=== PATIENT | male | born 1955 | race Caucasian/White ===

== ENCOUNTER 2019-01-28 16:44 | Emergency (ER) | payer MEDICARE, OTHER ==
[2019-01-28 16:50] VITALS: BP 153/83; PULSE 78; RESP 20; TEMP 97.5
[2019-01-28] MEDS ORDERED: LIDOCAINE 1% INJ 10MG/ML (20 ML MDV) SQ ONE (17:11)
[2019-01-28] MEDS ORDERED: AMOXIC-POT CLAV 875MG STARTER 2 EACH TABLET PO STA (17:11)
[2019-01-28] MEDS ORDERED: DIPH,PERTUS(ACELL)TETVAC-LF 0.5 ML VIAL IM ONE (17:11)
--- NOTE | 2019-01-28 17:34 | ED ---
Animal Bite HPI - General Chief Complaint: Animal Bite Stated Complaint: Thumb Lac Time Seen by Provider: 01/28/19 16:52 Source: patient, RN notes reviewed, old records reviewed Mode of arrival: ambulatory Limitations: no limitations - History of Present Illness Initial Comments: Asians an 63-year-old male presents today with a laceration over his left thumb after dog bite. Patient reports he was bit by his brother's dog. Patient reports is a flap type laceration he felt that he needed to have it sutured. He reports that the dog is up-to-date on vaccines. He reports he needs an updated tetanus vaccine today. - Related Data Previous Rx's Medication Instructions Recorded Amoxic-Pot Clav 875-125Mg 1 tab PO Q12HR #20 tablet 01/28/19 [Augmentin 875-125] Allergies Allergy/AdvReac Type Severity Reaction Status Date / Time prochlorperazine Allergy Hallucinati Verified 01/28/19 16:51 [From Compazine] ons Review of Systems ROS Statement: Those systems with pertinent positive or pertinent negative responses have been documented in the HPI. ROS Other: All systems not noted in ROS Statement are negative. Past Medical History Past Medical History: No Reported History History of Any Multi-Drug Resistant Organisms: None Reported Past Surgical History: No Surgical Hx Reported Past Psychological History: No Psychological Hx Reported Smoking Status: Never smoker Past Alcohol Use History: None Reported Past Drug Use History: None Reported General Exam - General Exam Comments Initial Comments: 63-year-old male. Alert and oriented. No distress. Limitations: no limitations General appearance: alert, in no apparent distress Head exam: Present: atraumatic, normocephalic, normal inspection Eye exam: Present: normal appearance, PERRL, EOMI. Absent: scleral icterus, conjunctival injection, periorbital swelling ENT exam: Present: normal exam, mucous membranes moist Neck exam: Present: normal inspection. Absent: tenderness, meningismus, lymphadenopathy Respiratory exam: Present: normal lung sounds bilaterally. Absent: respiratory distress, wheezes, rales, rhonchi, stridor Cardiovascular Exam: Present: regular rate, normal rhythm, normal heart sounds. Absent: systolic murmur, diastolic murmur, rubs, gallop, clicks GI/Abdominal exam: Present: soft, normal bowel sounds. Absent: distended, ten derness, guarding, rebound, rigid Extremities exam: Present: normal inspection, full ROM, normal capillary refill, other (Patient has a 3 cm flap laceration over the left thumb. This is over the DIP. Full range of motion of the thumb. Normal sensation distally.). Absent: tenderness, pedal edema, joint swelling, calf tenderness Back exam: Present: normal inspection Neurological exam: Present: alert, oriented X3, CN II-XII intact Psychiatric exam: Present: normal affect, normal mood Course Vital Signs 01/28/19 16:48 Temperature 97.5 F L Pulse Rate 78 Respiratory 20 Rate Blood Pressure 153/83 O2 Sat by Pulse 99 Oximetry Procedures - Laceration Laceration #1 Site: upper extremity (Left thumb) Size (cm): 3 Description: flap Depth: simple, single layer Anesthesia Technique: local infiltration Amount (mls): 2 Pre-repair: wound explored, irrigated extensively Type of Sutures: nylon Size of Sutures: 5-0 Number of Sutures: 4 Technique: simple, interrupted Patient Tolerated Procedure: well, no complications Medical Decision Making - Medical Decision Making 63-year-old male presents today with a dog bite over the left thumb. He is a flap laceration that is open, evidence of flash tissue exposed. The wound was thoroughly irrigated with 2 L of saline and iodine solution. The wound was loosely approximated with 4 sutures. Discussed keeping the thumb straight to avoid bending until all the skin to heal. I discussed the Patient needs to take antibiotics was given updated tetanus and Augmentin. - Radiology Data Radiology results: report reviewed An x-ray shows soft tissue deformity. No fracture. Disposition Clinical Impression: Thumb laceration, Animal bite Disposition: HOME SELF-CARE Condition: Good Instructions (If sedation given, give patient instructions): Animal Bite (ED) Additional Instructions: Please use medication as discussed. Please follow up with family doctor if symptoms have not improved over the next two days. Please return to the emergency room if your symptoms increase or worsen or for any other concerns. Please return to the emergency room in 8-10 days to have sutures removed. Please leave wound covered for the first 24-48 hours and then leave open to air after that time. Please use clean soap and water to clean the suture area to prevent scabbing over the top of your sutures. Please watch for any signs of infection which may include but not limited to increased pain, swelling, redness, fever or chills. Please return to the emergency room if any signs of infection do occur. Please return to the emergency room for any other concerns or complications. Prescriptions: Amoxic-Pot Clav 875-125Mg [Augmentin 875-125] 1 tab PO Q12HR #20 tablet Is patient prescribed a controlled substance at d/c from ED?: No Referrals: Finesse Giles MD [Primary Care Provider] - 1-2 days Time of Disposition: 18:37
--- NOTE | 2019-01-28 18:05 | XR ---
PROCEDURE: XR hand complete LT - 3V DATE AND TIME: 01/28/2019 5:22 PM CLINICAL INDICATION: PHH; pain TECHNIQUE: Department protocol COMPARISON: None FINDINGS: There is soft tissue laceration change to the thumb soft tissues, just proximal to the IP level. There is no fracture or malalignment. Multilevel relatively mild degenerative joint changes appreciated. IMPRESSION: Soft tissue changes.
== END 2019-01-28 18:43 | disposition home or self-care (01) ==
LOC: EC 16:44
DX: Z20.3 Contact with and (suspected) exposure to rabies (principal); S61.012A Laceration without foreign body of left thumb without damage to nail, initial encounter; Z88.8 Allergy status to other drugs, medicaments and biological substances; Z23 Encounter for immunization; W54.0XXA Bitten by dog, initial encounter; Y92.009 Unspecified place in unspecified non-institutional (private) residence as the place of occurrence of the external cause
CPT/HCPCS: 73130; 90715; 99284; 90471; 12002; J2001

== ENCOUNTER → 2019-07-27 | Outpatient (CLI) | payer MEDICARE, OTHER ==
[2019-07-27 13:16] LABS: HCT 42.4 % (39.0-53.0); HGB 13.6 gm/dL (13.0-17.5); MCH 29.2 pg (25.0-35.0); MCHC 32.2 g/dL (31.0-37.0); MCV 90.7 fL (80.0-100.0); Platelet Count 298 k/uL (150-450); RBC 4.67 m/uL (4.30-5.90); RDW 12.4 % (11.5-15.5); WBC 4.8 k/uL (3.8-10.6)
[2019-07-27 23:49] LABS: African American GFR (CKD) 93.7 (60.0-200.0); Albumin 4.2 g/dL (3.80-4.90); Albumin/Globulin Ratio 1.68 (1.60-3.17); Anion Gap 11.2 mmol/L (4.00-12.00); Calcium 9.6 mg/dL (8.7-10.3); Carbon Dioxide 26.8 mmol/L (21.6-31.8); Globulin 2.5 g/dL (1.6-3.3); Non-African American GFR(CKD) 80.9 (60.0-200.0); Potassium 4.3 mmol/L (3.5-5.5); Total Bilirubin 0.5 mg/dL (0.3-1.2); Total Protein 6.7 g/dL (6.2-8.2)
[2019-07-28 00:18] LABS: Hepatitis A Antibody IgM Non-Reactive (Non-Reactive); Hepatitis B Core IgM Non-Reactive (Non-Reactive); Hepatitis B Surface Antigen Non-Reactive (Non-Reactive); Hepatitis C IgG Antibody Non-Reactive (Non-Reactive)
[2019-07-28 01:18] LABS: HIV 2 AB Non-Reactive (Non-Reactive); HIV AB P24 Non-Reactive (Non-Reactive); HIV P24 AG Non-Reactive (Non-Reactive)
== END | disposition home or self-care (01) ==
LOC: LABWHC1 11:47
PROVIDERS: ATTEND Internal Medicine
DX: Z20.2 Contact with and (suspected) exposure to infections with a predominantly sexual mode of transmission (principal); G89.29 Other chronic pain
CPT/HCPCS: 36415; 80053; 80074; 84443; 85027; 86694; 86695; 86696; 86780; 87390

== ENCOUNTER 2020-07-28 19:09 | Emergency (ER) | payer MEDICARE, OTHER ==
[2020-07-28 19:19] VITALS: BP 153/83; PULSE 78; RESP 20; TEMP 98
--- NOTE | 2020-07-28 19:57 | ED ---
Upper Extremity HPI - General Chief Complaint: Extremity Injury, Upper Stated Complaint: sent by urgent care Time Seen by Provider: 07/28/20 19:47 Source: patient Mode of arrival: ambulatory Limitations: no limitations - History of Present Illness Initial Comments: Doug is a 64-year-old male who presents the ER today for evaluation of a hematoma on his left elbow. Patient states he doesn't recall hitting his elbow on anything but today noticed what appears to be older hematoma that is healing. Patient was moving heavy furniture yesterday doesn't recall any incident in which he felt like he pulled a muscle or hit his arm against anything. He has no pain at the site. He states that today his significant other noted the bruise and he did feel a little bit of tenderness if he palpated a deeply but nothing else. Because he didn't know what caused it and he has heard that hematomas can get infected he came to the ER for evaluation. - Related Data Previous Rx's Medication Instructions Recorded Amoxic-Pot Clav 875-125Mg 1 tab PO Q12HR #20 tablet 01/28/19 [Augmentin 875-125] Allergies Allergy/AdvReac Type Severity Reaction Status Date / Time prochlorperazine Allergy Hallucinati Verified 07/28/20 19:18 [From Compazine] ons Review of Systems ROS Statement: Those systems with pertinent positive or pertinent negative responses have been documented in the HPI. ROS Other: All systems not noted in ROS Statement are negative. Past Medical History Past Medical History: No Reported History History of Any Multi-Drug Resistant Organisms: None Reported Past Surgical History: Adenoidectomy, Appendectomy, Tonsillectomy Past Psychological History: Anxiety Smoking Status: Never smoker Past Alcohol Use History: None Reported Past Drug Use History: None Reported General Exam - General Exam Comments Initial Comments: Physical Exam GENERAL: Patient is well-developed and well-nourished. Patient is nontoxic and well-hydrated and is in no distress. HENT: Normocephalic, Atraumatic. EYES: PERRL, EOMI PULMONARY: Unlabored respirations. CARDIOVASCULAR: RRR Warm and well perfused extremities ABDOMEN: Non-distended SKIN: Hematoma to left elbow, yellowing of edges indicitive of aging hematoma No erythema Minimal tenderness to firm palpation : Deferred NEUROLOGIC: Alert and oriented Normal speech MUSCULOSKELETAL: Moving all extremities with no apparent injury PSYCHIATRIC: No SI/HI Limitations: no limitations Course Vital Signs 07/28/20 19:14 Temperature 98.0 F Pulse Rate 78 Respiratory 20 Rate Blood Pressure 153/83 O2 Sat by Pulse 98 Oximetry Medical Decision Making - Medical Decision Making Patient with aging non-infected hematoma, declined xray, will be discharged home advised to return if there are any signs of infection Disposition Clinical Impression: Traumatic hematoma of left elbow Disposition: HOME SELF-CARE Condition: Stable Instructions (If sedation given, give patient instructions): Hematoma (ED) Is patient prescribed a controlled substance at d/c from ED?: No Referrals: Finesse Giles MD [Primary Care Provider] - 1-2 days
== END 2020-07-28 20:02 | disposition home or self-care (01) ==
LOC: EC 19:09
DX: S50.02XA Contusion of left elbow, initial encounter (principal); X58.XXXA Exposure to other specified factors, initial encounter
CPT/HCPCS: 99282

== ENCOUNTER → 2021-05-14 | Outpatient (CLI) | payer OTHER ==
--- NOTE | 2021-05-14 10:32 | XR ---
EXAMINATION TYPE: XR lumbosacral spine min 4V DATE OF EXAM: 05/14/2021 COMPARISON: None available INDICATION: 65-year-old male, chronic low back pain radiating down legs worse in the left leg TECHNIQUE: Standard 5 views of the lumbar spine. FINDINGS: Preserved lumbar lordosis. Minimal retrolisthesis of L2 over L3 and L3 over L4. No definite vertebral body collapse or acute displaced fracture. Reduced heights of L3-4, L4-5 and L5-S1 discs which may i ndicate disc degeneration. L3-4 and L4-5 opposing endplate osteophytosis. Suspected bilateral L4-5 facet osteoarthropathy. Significant fecal loading of the colon suggestive of constipation. Unremarkable visualized portion of the sacroiliac joints. 3 mm left abdominal soft tis brunilda calcification versus left renal calculus. IMPRESSION: Degenerative changes of the lumbar spine as described above. Further MRI assessment can be considered if clinically required. Other incidental findings as described above.
== END | disposition home or self-care (01) ==
LOC: RADXRMAIN 09:38
PROVIDERS: ATTEND Family Medicine
DX: M47.26 Other spondylosis with radiculopathy, lumbar region (principal)
CPT/HCPCS: 72110

== ENCOUNTER 2021-07-14 17:40 | Emergency (ER) | payer OTHER ==
[2021-07-14 17:45] VITALS: BP 148/98; PULSE 105; RESP 20; TEMP 97.9
[2021-07-14 18:17] LABS: Potassium 4.2 mmol/L (3.5-5.1)
[2021-07-14 18:18] LABS: ALT 16 U/L (4-49); AST 23 U/L (17-59); African American GFR (CKD) >90 (>60 ml/min/1.73 sqM); Albumin 4.2 g/dL (3.5-5.0); Alkaline Phosphatase 68 U/L (38-126); Anion Gap 6 mmol/L; Blood Urea Nitrogen 11 mg/dL (9-20); Calcium 9.6 mg/dL (8.4-10.2); Carbon Dioxide 28 mmol/L (22-30); Chloride 99 mmol/L (98-107); Glucose 116 mg/dL (74-99); Non-African American GFR(CKD) 88 (>60 ml/min/1.73 sqM); Sodium 133 mmol/L (137-145); Total Bilirubin 0.4 mg/dL (0.2-1.3); Total Protein 7.3 g/dL (6.3-8.2)
[2021-07-14 18:19] LABS: Basophils # (A) 0.1 k/uL (0-0.2); Basophils % (A) 1 %; Eosinophils % (A) 1 %; HCT 38.8 % (39.0-53.0); Lymphocytes # (A) 1.4 k/uL (1.0-4.8); Lymphocytes % (A) 20 %; MCH 29.4 pg (25.0-35.0); MCHC 33.4 g/dL (31.0-37.0); MCV 88.1 fL (80.0-100.0); Mean Platelet Volume 6.8; Monocytes # (A) 0.5 k/uL (0-1.0); Monocytes % (A) 7 %; Neutrophils # (A) 4.8 k/uL (1.3-7.7); Neutrophils % (A) 68 %; Platelet Count 322 k/uL (150-450); RBC 4.41 m/uL (4.30-5.90); RDW 12.6 % (11.5-15.5); WBC 7.1 k/uL (3.8-10.6)
[2021-07-14 18:20] LABS: Partial Thromboplastin Time 24.8 sec (22.0-30.0); Prothrombin Time 11.1 sec (9.0-12.0)
[2021-07-14 21:32] LABS: Lipase 77 U/L (23-300)
== END 2021-07-14 19:57 | disposition left against medical advice (07) ==
LOC: EC 17:40
DX: Z53.21 Procedure and treatment not carried out due to patient leaving prior to being seen by health care provider (principal); R07.9 Chest pain, unspecified
CPT/HCPCS: 36415; 80053; 83690; 84484; 85025; 85610; 85730; 93005; 99499

== ENCOUNTER → 2023-03-12 | Outpatient (CLI) | payer MEDICARE, OTHER ==
--- NOTE | 2023-03-12 14:37 | CT ---
EXAMINATION TYPE: CT cervical spine wo con DATE OF EXAM: 03/12/2023 COMPARISON: NONE HISTORY: neck pain post cervical fusion CT DLP: 449 mGycm. Automated Exposure Control for Dose Reduction was Utilized. TECHNIQUE: CT scan of the cervical spine is obtained without contrast, axial images are obtained, sa gittal and coronal reformatted images are also reviewed. FINDINGS: Cervical spine is visualized in its entirety from C1 through upper thoracic levels, anterio r fusion device at C6-C7 levels is present with metallic disc component. There is slight grade 1 ante rolisthesis of C6 on C7 on sagittal image 32. Moderate disc space narrowing and spurring at C5-C6 lev el is present. Posterior spur disc complex effaces the anterior thecal sac at this level. Review of axial images shows additional central disc herniation C2-C3 level effacing the anterior the todd sac on image 41. There is bilateral neural foraminal narrowing due to marginal spurring at C5-C6 level. Thyroid gland is felt within normal limits. Visualized lung apices are clear without pneumotho rax identified. IMPRESSION: Surgical change C6-C7 level with slight grade 1 anterolisthesis C6 on C7. Degenerative c hanges are present at C5-C6 level as detailed above.
== END | disposition home or self-care (01) ==
LOC: RADCTMAIN 13:07
PROVIDERS: ATTEND Specialist
DX: M43.12 Spondylolisthesis, cervical region (principal); M47.22 Other spondylosis with radiculopathy, cervical region; M50.11 Cervical disc disorder with radiculopathy, high cervical region; M43.22 Fusion of spine, cervical region
CPT/HCPCS: 72125

== ENCOUNTER 2024-08-16 06:44 | Emergency (ER) | payer MEDICARE, OTHER ==
[2024-08-16 06:57] VITALS: RESP 18
--- NOTE | 2024-08-16 07:13 | ED ---
Abdominal Pain HPI - General Chief Complaint: Abdominal Pain Stated Complaint: L Flank Pain Time Seen by Provider: 08/16/24 06:55 Source: patient, EMS, RN notes reviewed Mode of arrival: EMS Limitations: no limitations - History of Present Illness Initial Comments: 68-year-old male presents emergency department complaint of left-sided abdominal pain. Patient states that he has been having symptoms on and off for the last several months but states this pain is not alleviating persistent pain this morning. Patient states that makes pain feel better or worse. No change in bowel habits no dysuria no hematuria denies any nausea vomiting he did receive fentanyl and Zofran by EMS. Patient denies fevers or chills no prior abdominal surgeries. Patient offers no other associated symptoms - Related Data Previous Rx's Medication Instructions Recorded Amoxic-Pot Clav 875-125Mg 1 tab PO Q12HR #20 tablet 01/28/19 [Augmentin 875-125] Ketorolac [Toradol] 10 mg PO Q8HR #15 tab 08/16/24 Ondansetron Odt [Zofran Odt] 4 mg PO Q8HR PRN #10 tab 08/16/24 Tamsulosin [Flomax] 0.4 mg PO DAILY #7 cap 08/16/24 Allergies Allergy/AdvReac Type Severity Reaction Status Date / Time prochlorperazine Allergy Hallucinati Verified 07/14/21 17:45 [From Compazine] ons Review of Systems ROS Statement: Those systems with pertinent positive or pertinent negative responses have been documented in the HPI. ROS Other: All systems not noted in ROS Statement are negative. Past Medical History Past Medical History: No Reported History Additional Past Medical History / Comment(s): Closed head injury History of Any Multi-Drug Resistant Organisms: None Reported Past Surgical History: Adenoidectomy, Appendectomy, Tonsillectomy Past Psychological History: Anxiety Smoking Status: Never smoker Past Alcohol Use History: None Reported Past Drug Use History: None Reported General Exam Limitations: no limitations General appearance: alert, in no apparent distress Head exam: Present: atraumatic, normocephalic, normal inspection Eye exam: Present: normal appearance, PERRL, EOMI. Absent: scleral icterus, conjunctival injection, periorbital swelling ENT exam: Present: normal exam, normal oropharynx, mucous membranes moist Neck exam: Present: normal inspection, full ROM. Absent: tenderness, meningismus, lymphadenopathy Respiratory exam: Present: normal lung sounds bilaterally. Absent: respiratory distress, wheezes, rales, rhonchi, stridor Cardiovascular Exam: Present: regular rate, normal rhythm, normal heart sounds. Absent: systolic murmur, diastolic murmur, rubs, gallop, clicks GI/Abdominal exam: Present: soft, tenderness, normal bowel sounds. Absent: distended, guarding, rebound, rigid Back exam: Present: CVA tenderness (L). Absent: CVA tenderness (R) Neurological exam: Present: alert, oriented X3 Course Vital Signs 08/16/24 08/16/24 08/16/24 06:51 08:52 09:40 Temperature 97.8 F 97.9 F Pulse Rate 60 56 L 65 Respiratory 18 18 18 Rate Blood Pressure 158/94 126/78 117/78 O2 Sat by Pulse 98 100 95 Oximetry Medical Decision Making - Medical Decision Making Was pt. sent in by a medical professional or institution (, PA, PRODUCTION MACHINE SHOP SUPERVISOR, urgent care, hospital, or halfway...) When possible be specific @ -No Did you speak to anyone other than the patient for history (EMS, parent, family, police, friend...)? What history was obtained from this source @ -No Did you review nursing and triage notes (agree or disagree)? Why? @ -I reviewed and agree with nursing and triage notes Were old charts reviewed (outside hosp., previous admission, EMS record, old EKG, old radiological studies, urgent care reports/EKG's, halfway records)? Report findings @ -No old charts were reviewed Differential Diagnosis (chest pain, altered mental status, abdominal pain women, abdominal pain men, vaginal bleeding, weakness, fever, dyspnea, syncope, headache, dizziness, GI bleed, back pain, seizure, CVA, palpatations, mental health, musculoskeletal)? @ -Differential Abdominal Pain Men: Appendicitis, cholecystitis, diverticulosis, ischemic bowel, pancreatitis, hepatitis, UTI, gastroenteritis, AAA, incarcerated hernia, bowel obstruction, constipation, inflammatory bowel, hepatitis, peptic ulcer disease, splenic infarction, perforated viscus, testicular torsion, this is not meant to be an all-inclusive list EKG interpreted by me (3pts min.). @ -None X-rays interpreted by me (1pt min.). @ -None done CT interpreted by me (1pt min.). @ -CT abdomen pelvis showing evidence of a left ureteral calculus U/S interpreted by me (1pt. min.). @ -None done What testing was considered but not performed or refused? (CT, X-rays, U/S, labs)? Why? @ -None What meds were considered but not given or refused? Why? @ -None Did you discuss the management of the patient with other professionals (professionals i.e. , PA, PRODUCTION MACHINE SHOP SUPERVISOR, lab, RT, psych nurse, social work program coordinator, top and seat cover fitter, teacher, facility security officer, case monitor)? Give summary @ -No Was smoking cessation discussed for >3mins.? @ -No Was critical care preformed (if so, how long)? @ -No Were there social determinants of health that impacted care today? How? (Homelessness, low income, unemployed, alcoholism, drug addiction, transpo rtation, low edu. Level, literacy, decrease access to med. care, long term, rehab)? @ -No Was there de-escalation of care discussed even if they declined (Discuss DNR or withdrawal of care, Hospice)? DNR status @ -No What co-morbidities impacted this encounter? (DM, HTN, Smoking, COPD, CAD, Cancer, CVA, ARF, Chemo, Hep., AIDS, mental health diagnosis, sleep apnea, morbid obesity)? @ -None Was patient admitted / discharged? Hospital course, mention meds given and route, prescriptions, significant lab abnormalities, going to OR and other pertinent info. @ discharge patient has left renal calculus patient's pain is controlled. Patient was discharged in stable condition return parameters discussed Undiagnosed new problem with uncertain prognosis? @ -No Drug Therapy requiring intensive monitoring for toxicity (Heparin, Nitro, Insulin, Cardizem)? @ -No Were any procedures done? @ -No Diagnosis/symptom? @ -Left ureteral calculus Acute, or Chronic, or Acute on Chronic? @ -Acute Uncomplicated (without systemic symptoms) or Complicated (systemic symptoms)? @ -Complicated Side effects of treatment? @ -No Exacerbation, Progression, or Severe Exacerbation? @ -No Poses a threat to life or bodily function? How? (Chest pain, [place], [place], pneumonia, PE, COPD, DKA, ARF, appy, cholecystitis, CVA, Diverticulitis, Homicidal, Suicidal, threat to staff... and all critical care pts) @ -No - Lab Data Result diagrams: 08/16/24 07:09 08/16/24 07:09 Lab Results 08/16/24 08/16/24 08/16/24 Range/Units 07:09 07:09 07:09 WBC 5.57 (4.50-10.00) 10*3/uL RBC 4.09 L (4.40-5.60) 10*6/uL Hgb 12.4 L (13.0-17.0) g/dL Hct 35.5 L (39.6-50.0) % MCV 86.8 (80.0-97.0) fL MCH 30.3 (27.0-32.0) pg MCHC 34.9 (32.0-37.0) g/dL Plt Count 293 (140-440) 10*3/uL MPV 8.8 L (9.5-12.2) fL Immature Gran % (Auto) 0.2 % Neutrophils % 44.8 % Lymphocytes % 41.7 % Monocytes % 8.4 % Eosinophils % 3.8 % Basophils % 1.1 % Immature Gran # 0.01 (0.00-0.04) 10*3/uL Neutrophils # 2.50 (1.80-7.70) 10*3/uL Lymphocytes # 2.32 (0.90-5.00) 10*3/uL Monocytes # 0.47 (0.20-1.00) 10*3/uL Eosinophils # 0.21 (0.04-0.35) 10*3/uL Basophils # 0.06 (0.00-0.10) 10*3/uL Sodium 136 L (137-145) mmol/L Potassium 4.4 (3.5-5.1) mmol/L Chloride 103 (98-107) mmol/L Carbon Dioxide 26 (22-30) mmol/L Anion Gap 7 mmol/L BUN 21 H (9-20) mg/dL Creatinine 0.93 (0.66-1.25) mg/dL Est GFR (CKD-EPI)AfAm >90 (>60 ml/min/1.73 sqM) Est GFR (CKD-EPI)NonAf 86 (>60 ml/min/1.73 sqM) Glucose 97 (74-99) mg/dL Plasma Lactic Acid Dickson 0.8 (0.7-2.0) mmol/L Calcium 9.3 (8.4-10.2) mg/dL Total Bilirubin 0.3 (0.2-1.3) mg/dL AST 20 (17-59) U/L ALT 14 (4-49) U/L Alkaline Phosphatase 53 (38-126) U/L Total Protein 6.5 (6.3-8.2) g/dL Albumin 3.8 (3.5-5.0) g/dL Lipase 102 (23-300) U/L Urine Color Urine Appearance (Clear) Urine pH (5.0-8.0) Ur Specific [place] (1.001-1.035) Urine Protein (Negative) Urine Glucose (UA) (Negative) Urine Ketones (Negative) Urine Blood (Negative) Urine Nitrite (Negative) Urine Bilirubin (Negative) Urine Urobilinogen (<2.0) mg/dL Ur Leukocyte Esterase (Negative) 08/16/24 Range/Units 07:22 WBC (4.50-10.00) 10*3/uL RBC (4.40-5.60) 10*6/uL Hgb (13.0-17.0) g/dL Hct (39.6-50.0) % MCV (80.0-97.0) fL MCH (27.0-32.0) pg MCHC (32.0-37.0) g/dL Plt Count (140-440) 10*3/uL MPV (9.5-12.2) fL Immature Gran % (Auto) % Neutrophils % % Lymphocytes % % Monocytes % % Eosinophils % % Basophils % % Immature Gran # (0.00-0.04) 10*3/uL Neutrophils # (1.80-7.70) 10*3/uL Lymphocytes # (0.90-5.00) 10*3/uL Monocytes # (0.20-1.00) 10*3/uL Eosinophils # (0.04-0.35) 10*3/uL Basophils # (0.00-0.10) 10*3/uL Sodium (137-145) mmol/L Potassium (3.5-5.1) mmol/L Chloride (98-107) mmol/L Carbon Dioxide (22-30) mmol/L Anion Gap mmol/L BUN (9-20) mg/dL Creatinine (0.66-1.25) mg/dL Est GFR (CKD-EPI)AfAm (>60 ml/min/1.73 sqM) Est GFR (CKD-EPI)NonAf (>60 ml/min/1.73 sqM) Glucose (74-99) mg/dL Plasma Lactic Acid Dickson (0.7-2.0) mmol/L Calcium (8.4-10.2) mg/dL Total Bilirubin (0.2-1.3) mg/dL AST (17-59) U/L ALT (4-49) U/L Alkaline Phosphatase (38-126) U/L Total Protein (6.3-8.2) g/dL Albumin (3.5-5.0) g/dL Lipase (23-300) U/L Urine Color Colorless Urine Appearance Clear (Clear) Urine pH 6.5 (5.0-8.0) Ur Specific [place] 1.010 (1.001-1.035) Urine Protein Negative (Negative) Urine Glucose (UA) Negative (Negative) Urine Ketones Negative (Negative) Urine Blood Negative (Negative) Urine Nitrite Negative (Negative) Urine Bilirubin Negative (Negative) Urine Urobilinogen <2.0 (<2.0) mg/dL Ur Leukocyte Esterase Negative (Negative) Disposition Clinical Impression: Left ureteral calculus Disposition: HOME SELF-CARE Condition: Stable Instructions (If sedation given, give patient instructions): Kidney Stones (ED) Additional Instructions: Please return to the Emergency Department if symptoms worsen or any other concerns. Prescriptions: Tamsulosin [Flomax] 0.4 mg PO DAILY #7 cap Ketorolac [Toradol] 10 mg PO Q8HR #15 tab Ondansetron Odt [Zofran Odt] 4 mg PO Q8HR PRN #10 tab PRN Reason: Nausea Is patient prescribed a controlled substance at d/c from ED?: No Referrals: Garland Calderón MD [STAFF PHYSICIAN] - 1-2 days Alirio Appiah MD [STAFF PHYSICIAN] - 1-2 days Time of Disposition: 09:20
[2024-08-16 07:19] LABS: Basophils # (A) 0.06 10*3/uL (0.00-0.10); Basophils % (A) 1.1 %; Eosinophils # (A) 0.21 10*3/uL (0.04-0.35); Eosinophils % (A) 3.8 %; HCT 35.5 % (39.6-50.0); HGB 12.4 g/dL (13.0-17.0); Lymphocytes # (A) 2.32 10*3/uL (0.90-5.00); Lymphocytes % (A) 41.7 %; MCH 30.3 pg (27.0-32.0); MCHC 34.9 g/dL (32.0-37.0); MCV 86.8 fL (80.0-97.0); Mean Platelet Volume 8.8 fL (9.5-12.2); Monocytes # (A) 0.47 10*3/uL (0.20-1.00); Monocytes % (A) 8.4 %; Neutrophils % (A) 44.8 %; Platelet Count 293 10*3/uL (140-440); RBC 4.09 10*6/uL (4.40-5.60); RDW 11.9 % (11.5-14.5); WBC 5.57 10*3/uL (4.50-10.00)
[2024-08-16] MEDS: SODIUM CHLORIDE 0.9% 1,000 ML IV ONE (07:22)
[2024-08-16 07:31] LABS: ALT 14 U/L (4-49); AST 20 U/L (17-59); African American GFR (CKD) >90 (>60 ml/min/1.73 sqM); Albumin 3.8 g/dL (3.5-5.0); Alkaline Phosphatase 53 U/L (38-126); Anion Gap 7 mmol/L; Blood Urea Nitrogen 21 mg/dL (9-20); Calcium 9.3 mg/dL (8.4-10.2); Carbon Dioxide 26 mmol/L (22-30); Chloride 103 mmol/L (98-107); Glucose 97 mg/dL (74-99); Lipase 102 U/L (23-300); Non-African American GFR(CKD) 86 (>60 ml/min/1.73 sqM); Potassium 4.4 mmol/L (3.5-5.1); Sodium 136 mmol/L (137-145); Total Bilirubin 0.3 mg/dL (0.2-1.3); Total Protein 6.5 g/dL (6.3-8.2)
[2024-08-16 07:34] LABS: Appearance,Urine Clear (Clear); Bilirubin,Urine Negative (Negative); Blood,Urine Negative (Negative); Color,Urine Colorless; Glucose,Urine (UA) Negative (Negative); Ketones,Urine Negative (Negative); Leukocyte Esterase,Urine Negative (Negative); Nitrite,Urine Negative (Negative); PH, Urine 6.5 (5.0-8.0); Protein,Urine Negative (Negative); Urobilinogen,Urine <2.0 mg/dL (<2.0)
--- NOTE | 2024-08-16 08:40 | CT ---
EXAMINATION TYPE: CT abdomen pelvis w con DATE OF EXAM: 08/16/2024 8:26 AM COMPARISON: None. CLINICAL INDICATION: Male, 68 years old with history of abdominal pain left, Left sided abdominal tawanda n TECHNIQUE: Axial images were obtained from above the diaphragm to the pubic rami in the axial plane a t 5 mm thick sections. Reconstructed images are reviewed on the computer in the coronal plane. CONTRAST: 100 ml mL of Isovue 300. Study performed without Oral Contrast DLP: 900 mGycm, Automated exposure control for dose reduction was used. FINDINGS: Limited CT sections are obtained the lung bases. The lung bases are clear. CT ABDOMEN: Liver: Normal Spleen: Normal Pancreas: Normal Adrenal glands: The adrenal glands are normal. Gallbladder: Normal Kidneys: No masses are evident. Mild left hydronephrosis is present. No cysts are present. There is a 0.4 cm nonobstructing renal stone in the mid to inferior pole left kidney. Extrarenal pelvis is pre sent on the left. There is some hydroureter present extending to the ureterovesical junction. At the left ureterovesical junction there is an obstructing 0.4 cm calcification. Aorta: Normal Inferior vena cava: Normal. CT PELVIS: Loops of bowel within the abdomen and pelvis are normal. There are loops of bowel which are incom pletely distended or lack oral contrast limiting their evaluation. Appendix: Normal as visualized. Urinary bladder: Normal. Genitourinary structures: Prostate is prominent Osseous structures: No suspicious lytic or sclerotic lesions. IMPRESSION: 1. 0.4 cm obstructing left ureterovesical junction stone with moderate left hydronephrosis and mild left hydroureter. 2. Nonobstructing 0.4 cm left ureteral stone. [facility], , 08/16/2024 8:38 AM
[2024-08-16] MEDS: KETOROLAC 15 MG/ML 1 ML VIAL IVP STA (09:17)
[2024-08-16] MEDS: HYDROmorphone 0.5 MG/0.5 ML SYRINGE IVP STA (09:19)
[2024-08-16] MEDS: ACET/COD 300 MG/30 MG STARTER PACK 6 TAB BTL PO STA (09:39)
[2024-08-16 09:46] VITALS: BP 117/78; PULSE 65; TEMP 97.9
== END 2024-08-16 09:45 | disposition home or self-care (01) ==
LOC: EC 06:44
DX: N13.2 Hydronephrosis with renal and ureteral calculous obstruction (principal); Z88.8 Allergy status to other drugs, medicaments and biological substances
CPT/HCPCS: 36415; 80053; 83605; 83690; 85025; 81003; 74177; 99285; 96374; 96375; 96361; J1885; J1171; Q9967

== ENCOUNTER → 2024-08-23 | Outpatient (CLI) | payer MEDICARE, OTHER ==
--- NOTE | 2024-08-23 15:39 | XR ---
EXAMINATION TYPE: XR KUB DATE OF EXAM: 08/23/2024 3:24 PM COMPARISON: 08/17/2019 PET/CT. CLINICAL INDICATION: Male, 68 years old with history of N20.1 CALCULUS OF URETER; [facility] TECHNIQUE: One radiographic view of the abdomen was obtained. FINDINGS: There is a moderate stool burden, otherwise, the bowel gas pattern is nonspecific without d ilated loops of small or large bowel. . Fecal material and gas are demonstrated throughout the colon and rectum. There is no evidence for organomegaly or pneumoperitoneum. No acute osseous process. 4 m m calculus near the distal ureter/ureterovesicular junction remains present. IMPRESSION: 1. Obstructing 4 mm calculus remains in similar position compared to 08/16/2024 CT 2. Moderate stool burden throughout the colon, Nonspecific bowel gas pattern without radiographic ev idence for acute process. [facility], , 08/23/2024 3:37 PM
== END | disposition home or self-care (01) ==
LOC: RADXRMAIN 15:06
PROVIDERS: ATTEND Urology
DX: N20.1 Calculus of ureter (principal)
CPT/HCPCS: 74018

== ENCOUNTER → 2024-09-06 | Outpatient (CLI) | payer MEDICARE, OTHER ==
--- NOTE | 2024-09-06 17:50 | XR ---
EXAMINATION TYPE: XR KUB DATE OF EXAM: 09/06/2024 COMPARISON: KUB radiograph 08/23/2024, CT abdomen and pelvis 08/16/2024 HISTORY: Pain TECHNIQUE: Single supine KUB image of the abdomen is obtained FINDINGS: Small bowel demonstrates no evidence for dilatation or air fluid levels. Moderate amount of stool is present throughout the colon. No convincing evidence for pneumoperitoneum. Unchanged 3 mm calculus near the distal ureter/ureterovesical junction. Stable pelvic phleboliths. The lung bases are clear. The osseous structures are intact. IMPRESSION: 1. Unchanged 3 mm calculus near the distal ureter/ureterovesical junction. 2. Moderate colonic stool burden. No evidence for bowel obstruction. [facility], , 09/06/2024 5:48 PM
== END | disposition home or self-care (01) ==
LOC: RADXRMAIN 17:22
PROVIDERS: ATTEND Urology
DX: N20.1 Calculus of ureter (principal)
CPT/HCPCS: 74018

== ENCOUNTER → 2024-09-23 | Outpatient (CLI) | payer MEDICARE, OTHER ==
--- NOTE | 2024-09-23 14:53 | CT ---
EXAMINATION TYPE: CT abdomen pelvis wo con CT DLP: 332.40 mGycm, Automated exposure control for dose reduction was used. DATE OF EXAM: 09/23/2024 2:41 PM COMPARISON: CT abdomen pelvis 08/16/2024, KUB radiograph 09/06/2024, 08/23/2024 CLINICAL INDICATION:Male, 68 years old with history of N20.1 CALCULUS OF URETER; hx of renal stones, current stone(s) in left kidney TECHNIQUE: Standard CT of the abdomen and pelvis without IV or oral contrast. Lack of IV or oral co ntrast limits evaluation of solid and hollow organ viscera. Coronal and sagittal reformats were perfo rmed. FINDINGS: LOWER CHEST: Unremarkable noncontrast appearance. ABDOMEN LIVER: Unremarkable noncontrast appearance. GALLBLADDER AND BILE DUCTS: Unremarkable noncontrast appearance. PANCREAS: Unremarkable noncontrast appearance. SPLEEN: Unremarkable noncontrast appearance. ADRENAL GLANDS: Unremarkable noncontrast appearance.. KIDNEYS AND URETERS: No evidence of hydronephrosis or renal calculus. No hydroureter or ureteral todd culus identified in today's exam. Minimal nonspecific bilateral perinephric fat stranding. PELVIS BLADDER: Underdistended but grossly unremarkable REPRODUCTIVE: Prostate is enlarged in size measuring 5.1 cm in transverse dimension. ABDOMEN & PELVIS STOMACH AND BOWEL: Stomach and duodenum are unremarkable. No focal bowel wall thickening or stranding inflammatory changes. Moderate colonic stool burden. Small bowel feces sign without dilated small beronica wel. No evidence of bowel obstruction. PERITONEUM: No evidence of pneumoperitoneum or free fluid. VASCULATURE: No evidence of aortic aneurysm. Couple of pelvic phleboliths. MUSCULOSKELETAL: No acute osseous abnormalities LYMPH NODES: No gross evidence for lymphadenopathy. SOFT TISSUE/ABDOMINAL WALL: Unremarkable IMPRESSION: 1. No evidence for obstructive uropathy. Previously seen left ureteral calculus has passed. No renal calculi identified. 2. Moderate colonic stool burden with small bowel feces sign. No dilated small bowel to suggest obstr uction. Findings suggest delayed bowel transit. [facility], , 09/23/2024 2:50 PM
== END | disposition home or self-care (01) ==
LOC: RADCTMAIN 13:57
PROVIDERS: ATTEND Urology
DX: N20.2 Calculus of kidney with calculus of ureter (principal)
CPT/HCPCS: 74176